=== PATIENT | male | born 1970 | race Caucasian/White ===

== ENCOUNTER 2024-06-04 01:29 | Outpatient (CLI) | payer OTHER, SELFPAY ==
--- NOTE | 2024-06-04 07:15 | DI.US_ITS ---
Exam(s) US NEEDLE LOCAL OTHER WO RAD EXAM: thyroid nodule,ultrasound guided bx,e04.1 COMPARISON: No exams were available for comparison TECHNIQUE: Ultrasound performed using standard protocol. FINDINGS: Sonography was provided for Dr. Kim during the performance of a thyroid nodule biopsy. Please re rolf to the procedure report for complete details. DATA REPOSITORY:
--- NOTE | 2024-06-04 11:30 | PAPNONF_PTH ---
PATIENT: Grant Lim LOC: [facility] U#:[id number] AGE/SX: 53/M ROOM: RE06/04/[address]: Wendy Cotto : 1970 BED: DIS: 06/04/2024 SPEC #: [id number] RECD: 06/04/24 12:57 STATUS: SUSAN REDavid #: [id number] TYLER: 06/04/24 11:[address]: Enoch Kim DEPT: [facility] Cytology RECD BY: Elvia Benavidez ENTERED: 06/04/24 12:58 SP TYPE: KRYSTYNA ZAMORA DR: Wendy Cotto Amber Rae Tissues: 1 - BODY FLUID CYTO-FINE NEEDLE [facility]IR[facility] Procedures: BODY FLUID CYTO-FINE NEEDLE ASPIRATE[facility] Comments: [id number] (PATH FNA CONSULT) (REFRIGERATED)
--- NOTE | 2024-06-04 11:49 | W.PROCNOTE ---
Date of service: 06/04/24 Time of Service: 11:49 Procedure Note Date of procedure: 06/04/24 Procedure: Ultrasound-guided FNA, left thyroid/isthmus nodule, pathology present Surgeon/Proceduralist/Physician: Enoch Kim Procedure Diagnosis: Thyroid nodule meeting criteria for biopsy Procedure Indications: The patient is a left isthmus/thyroid lobe nodule meeting criteria for biopsy. Options were explained to the patient regarding further management. He elected to undergo the above procedure. Consent was filled out and signed prior to the procedure. All questions were answered. He wished to proceed. His had no questions. Procedure Description: The patient was positioned in the supine position with his neck slightly extended and was prepped and draped in appropriate fashion. Ultrasound was used to localize the thyroid nodule and then 1% lidocaine with 1/100,000 epinephrine was injected in the skin and subcutaneous tissues overlying the medial aspect of the thyroid nodule. A 25-gauge needle was then passed repeatedly into the thyroid nodule. Pathology checked to make sure that cellular adequacy was reached. 2 additional passes were made for potential Afirma testing. There is no significant bleeding and the patient tolerated the procedure well. After ensuring adequate hemostasis, a sterile dressing was applied and the patient was allowed to sit, stand, and ambulate. His vital signs remained stable. He will remove the bandage in a couple of hours and not replace it. He will call with any signs of infection. He may use ibuprofen or Tylenol for any discomfort. He will call if he does not hear from us within 1 week with regard to pathology results. They had no further questions. They are comfortable with this plan.
== END 2024-06-04 01:49 ==
PROVIDERS: PCP Family Medicine; Visit Provider Registered Nurse Maternal Newborn
DX: D34 Benign neoplasm of thyroid gland (principal)
CPT/HCPCS: 10005; 76942; 88104